=== PATIENT | female | born 2000 | race Caucasian/White ===

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

== ENCOUNTER 2019-01-27 18:03 | Emergency (ER) | payer MEDICAID ==
[~2019-01-27] VITALS: Ht 165.1 cm; Wt 59.9 kg
[2019-01-27 18:20] VITALS: BP 116/36; Ht 165.1 cm; Wt 59.9 kg
== END 2019-01-27 19:44 | disposition home or self-care (01) ==
LOC: ED 18:03
DX: S80.862A Insect bite (nonvenomous), left lower leg, initial encounter (principal); S80.861A Insect bite (nonvenomous), right lower leg, initial encounter; S40.862A Insect bite (nonvenomous) of left upper arm, initial encounter; S40.861A Insect bite (nonvenomous) of right upper arm, initial encounter; S30.861A Insect bite (nonvenomous) of abdominal wall, initial encounter; W57.XXXA Bitten or stung by nonvenomous insect and other nonvenomous arthropods, initial encounter; Y93.89 Activity, other specified; Y92.89 Other specified places as the place of occurrence of the external cause; Y99.8 Other external cause status

== ENCOUNTER 2020-02-24 22:34 | Emergency (ER) | payer MEDICAID ==
[~2020-02-24] VITALS: Ht 162.6 cm; Wt 55.8 kg
[2020-02-24 22:57] VITALS: Ht 162.6 cm; Wt 55.8 kg
[2020-02-24 23:46] LABS: BASOPHIL % 1.1 % (0-2); PLATELET COUNT 190 x10^3mcL (130-400)
[2020-02-24 23:53] LABS: CALCIUM 9.2 mg/dL (8.5-10.1); CARBON DIOXIDE 26.2 mmol/L (21-32); CHLORIDE SERUM 101 mmol/L (98-107); CREATININE SERUM 1.1 mg/dL (0.6-1.0); GFR1 > 60 mL/min; GLUCOSE SERUM 92 mg/dL (74-106); POTASSIUM SERUM 3.6 mmol/L (3.5-5.1); SODIUM SERUM 139 mmol/L (136-145)
[2020-02-24 23:57] LABS: ALBUMIN 4.1 g/dL (3.4-5.0); ALKALINE PHOSPHATASE 74 U/L (46-116); ALT/SGPT 21 U/L (14-59); AST/SGOT 21 U/L (15-37); BILIRUBIN DIRECT 0.09 mg/dL (0.0-0.2); BILIRUBIN TOTAL 0.3 mg/dL (0.20-1.00); LIPASE 101 IU/L (73-393); TOTAL PROTEIN, SERUM 7.3 g/dL (6.4-8.2)
[2020-02-25 01:59] VITALS: BP 94/64
== END 2020-02-25 01:59 | disposition home or self-care (01) ==
LOC: ED 22:34
PROVIDERS: Student in an Organized Health Care Education/Training Program
DX: R10.13 Epigastric pain (principal); R10.11 Right upper quadrant pain; R19.7 Diarrhea, unspecified; R63.0 Anorexia
CPT/HCPCS: Q0092

== ENCOUNTER 2020-07-18 18:28 | Emergency (ER) | payer MEDICAID ==
[~2020-07-18] VITALS: Ht 162.6 cm; Wt 62.1 kg
[2020-07-18 18:36] VITALS: BP 116/86; Ht 162.6 cm; Wt 62.1 kg
== END 2020-07-18 20:47 | disposition home or self-care (01) ==
LOC: ED 18:28
DX: S60.112A Contusion of left thumb with damage to nail, initial encounter (principal); W23.0XXA Caught, crushed, jammed, or pinched between moving objects, initial encounter; Y93.89 Activity, other specified; Y92.89 Other specified places as the place of occurrence of the external cause; Y99.8 Other external cause status
CPT/HCPCS: J1885

== ENCOUNTER 2020-07-20 21:37 | Emergency (ER) | payer MEDICAID ==
[2020-07-20 22:19] VITALS: BP 122/82
== END 2020-07-20 22:53 | disposition home or self-care (01) ==
LOC: ED 21:37
DX: S60.112A Contusion of left thumb with damage to nail, initial encounter (principal); X58.XXXA Exposure to other specified factors, initial encounter; Y93.89 Activity, other specified; Y92.89 Other specified places as the place of occurrence of the external cause; Y99.8 Other external cause status